=== PATIENT | female | born 1985 | race Caucasian/White ===

== ENCOUNTER 2022-10-26 04:53 | Emergency (ER) | payer BC, SELFPAY ==
[2022-10-26 05:01] VITALS: BP 152/98; PULSE 87; RESP 22; TEMP 36.1; O2SAT 97; BMI 30.5
--- OUTSIDE RECORDS SUMMARY | 2022-10-26 05:31 | XMS_ITS | Patient Health Record ---
Author Name Unknown Organization [facility] - Primary Address [address] [address] Care Team Providers Care House Wirer Helper Name Role Phone Different, PCP Primary Care Provider Nam Walters Unavailable [phone] REASON FOR REFERRAL No Information MEDICATIONS Medication SIG (Take, Route, Frequency, Duration) Notes Start Date End Date Status metFORMIN 500 mg 1 tab(s) orally once a day for 30 day(s) Not-Taking fluticasone CFC free 110 mcg/inh 2 puff(s) inhaled 2 times a day for 30 day(s) Not-Taking albuterol 90 mcg/inh 2 puff(s) inhaled 4 times a day for 30 day(s) Active SOCIAL HISTORY Sex Assigned At : Social History Observation Description Sex Assigned At Unknown PROBLEMS Problem Type ICD Code Onset Dates Problem Status W/U Status Risk SNOMED Code Notes Problem Other obesity due to excess calories (E66.09) Active confirmed Obesity due to excess calories (501868739) Problem Obstructive sleep apnea (adult) (pediatric) (G47.33) Active confirmed Obstructive sleep apnea syndrome (disorder) (24871665) Encounters Encounter Location Date Provider Diagnosis [facility] - Primary [address] [address] 11/27/2021 Nam Olivo PLAN OF TREATMENT No Information Insurance Providers Payer Name Payer Address Payer Phone Subscriber Number Group Number Insured Name Patient Relationship to Insured Coverage Start Date Coverage End Date [employer] Commercial [address] [address] [place] [address] [id number] [place]NE BURNETT Spouse - patient is the spouse of the insured MEDICAL (GENERAL) HISTORY Medical History History ICD Code sleep apnea asthma Surgical History Surgery Date(Month/Year) 4 right ankle 2019 breast reduction
--- OUTSIDE RECORDS SUMMARY | 2022-10-26 05:31 | XMS_ITS | Continuity of Care Document ---
Author Name Unknown Organization [facility] Address [address] [place] [address] Phone Care Team Providers Care Pipe Inspector Name Role Phone Dewayne Wilkins Unavailable Unavailable Allergies, Adverse Reactions, Alerts Substance Reaction Status Criticality No Known Allergies Active No Inform ation Medications Medication Instructions Dosage Effective Dates (start - stop) Status Comments BIOTIN (unknown strength) Not Available - Active APPLE CIDER VINEGAR (unknown strength) Not Available - Active VITAMIN C (unknown strength) Not Available - Active VITAMIN D3 (unknown strength) Not Available - Active METFORMIN HCL (unknown strength) Not Available - Active Procedures Procedure Date Office/Outpatient Visit,Ignacia Amador 2020 Advance Directives Directive Yes / No Effective Date File Name No Information Encounters Encounter Description Practice Location Reason(s) For Visit Diagnoses Date Provider Providers Copied on Encounter [facility], [address], [place], [place], [id number] , [place] tel: [phone] [facility] No Information Josep Raygoza [facility], [address], [place], [place], [id number] , [place]. tel: [phone] Office/Outpat ient Visit,[facility], [address], [place], [place], [id number] , [place] tel: [phone] [facility] [place] Low back painCervicalgia 1 Josep Raygoza [facility], [address], [place], [place], [id number] , [place]. tel:[phone] Referring Provider: Dewayne Car, [facility] [address], [place], [address] . tel:[phone] Family History Family Member Type Diagnosis Age At Onset No Information Payers Payer name Insurance type Covered republican ID Authorsaud aggarwal(s) [facility] [id number] [facility] [id number] Social History Type Description Quantity Date Captured Comments Sex Female Smoking Status No Information Chief Complaint And Reason For Visit No Information Reason For Referral Reason For Referral No Information History Of Present Illness Encounter Date Complaint History Of Prese nt Illness No Information Functional Status Date Functional Assessmen t No Information Instructions Date Instruction Additional Infor mation No Information Assessments Type Assessment Date No Information Patient Care Teams Name Effective Dates (start - stop) Status Members No Information
--- NOTE | 2022-10-26 05:45 | ED.ABDPAIN ---
HPI - Abdominal Pain General Date Seen: 10/26/22 Chief Complaint: Unspecified Complaint, Adult Stated Complaint: hemorrhoids Time Seen by Provider: 10/26/22 05:09 Source: patient and family Mode of arrival: ambulatory Limitations: no limitations History of Present Illness HPI narrative: Patient is a 37-year-old female presents here with rectal pain secondary to hemorrhoids, gets this every day, last approximately 1:00 p.m. and then resolves, it occurs primarily with bowel movements, she took her anxiety medication today because of how bad it was. She had a colonoscopy done recently up in [place], apparently that was normal, she just has some small hemorrhoids. She has not noted that any of them have actually worsened, but this is the similar episode that she goes through every day. He is brought in by her today to see if there is anything that can be done for this she has an appointment at 1:00 p.m. this afternoon with the colorectal specialist. Treatments prior to arrival: other Related Data Patient : No Home Medications Medication Instructions Recorded Confirmed spironolactone 100 mg tablet 100 mg PO BID 09/18/21 09/18/21 Previous Rx's Medication Instructions Recorded albuterol sulfate 2.5 mg/3 mL 2.5 mg (3 mL) inhalation Q4-6H PRN 09/18/21 (0.083 %) solution for nebulization shortness of breath or wheezing #75 mL albuterol sulfate 90 mcg/actuation 2 puff inhalation Q6H PRN 09/18/21 aerosol inhaler shortness of breath or wheezing #6.7 grams hydrocortisone acetate 25 mg 25 mg TX DAILY #12 ea 10/26/22 rectal suppository (Anusol-HC) Allergies Allergy/AdvReac Type Severity Reaction Status Date / Time No Known Drug Allergies Allergy Verified 09/18/21 12:13 Review of Systems Status of ROS Reports: 10 or more systems reviewed and unremarkable except as noted in History and below PFSH PFS Medical History Asthma ?J45.909 - Unspecified asthma, uncomplicated (ICD-10) Social History Smoking Status: Never smoker Exam Narrative: Exam Narrative: Patient is seen in room 6 with a nurse present Violet, she is rocking, obviously anxious, she does not complain of any abdominal pain just pain over the rectal area. With my nurse present, I was able to examine the area, she has 1 small external nonthrombosed hemorrhoid, but really no other inner or outer, she would not tolerate a rectal exam and I was unable to do this. Const: Vital Signs, click to edit/add: Vital Signs - 24 hr 10/26/22 05:01 Temperature 97.0 F L Pulse Rate [Left P ulse Oximeter] 87 Respiratory Rate 22 Blood Pressure [Le ft Upper Arm] 152/98 H Pulse Oximetry 97 Oxygen Delivery Me thod Room Air Documenting provider has reviewed patient's vital signs: yes Course Course Hospital Course: I discussed with her that I really do not have a lot to offer her with the 2-3 month history of hemorrhoids, she is already seeing a regular specialist for this, and the colorectal area. I do suggest that she follow up with him I did give her prescription for suppositories that often can help this, with cortisone cream. Would be happy to refer to our specialists here General surgery the could also help her too. But she feels more apt to stay within her system. Vital Signs Vital signs: Initial Vital Signs Temperature 97.0 F L 10/26/22 05:01 Temperature Source Temporal Artery Scan 10/26/22 05:01 Pulse Rate 87 10/26/22 05:01 Pulse Rhythm Regular 10/26/22 05:01 Respiratory Rate 22 10/26/22 05:01 Blood Pressure 152/98 H 10/26/22 05:01 Blood Pressure Mean 116 H 10/26/22 05:01 Blood Pressure Position Sitting 10/26/22 05:01 Pulse Oximetry 97 10/26/22 05:01 Oxygen Delivery Method Room Air 10/26/22 05:01 Vital Signs Temperature 97.0 F L 10/26/22 05:01 Pulse Rate 87 10/26/22 05:01 Respiratory Rate 22 10/26/22 05:01 Blood Pressure 152/98 H 10/26/22 05:01 Pulse Oximetry 97 10/26/22 05:01 Oxygen Delivery Method Room Air 10/26/22 05:01 Temperature 97.0 F L 10/26/22 05:01 Pulse Rate 87 10/26/22 05:01 Respiratory Rate 22 10/26/22 05:01 Blood Pressure 152/98 H 10/26/22 05:01 Pulse Oximetry 97 10/26/22 05:01 Oxygen Delivery Method Room Air 10/26/22 05:01 Discharge Plan Discharge Clinical Impression: Cutaneous tag, hemorrhoidal Patient Disposition: Home w/ Parent or Adult Condition: Stable Additional Instructions: Home rest try the Anusol HC. Follow-up with Colorectal sounds like you already have an appointment today. Prescriptions: New hydrocortisone acetate [Anusol-HC] 25 mg suppository 25 mg TX DAILY Qty: 12 0RF No Action spironolactone 100 mg tablet 100 mg PO BID albuterol sulfate 2.5 mg /3 mL (0.083 %) solution for nebulization 2.5 mg inhalation Q4-6H PRN (Reason: shortness of breath or wheezing) Qty: 75 0RF albuterol sulfate 90 mcg/actuation HFA aerosol inhaler 2 puff inhalation Q6H PRN (Reason: shortness of breath or wheezing) Qty: 6.7 2RF Follow Up/Referrals: Kristen Lopez MD [Staff Physician] - Provider,Not a Local [Primary Care Provider] - Stand Alone Forms: [email or web address] Info Instructions
--- NOTE | 2022-10-26 05:54 | ED.NURSE ---
Patient left department without discharge instructions per Dr. Saldaña's direction. Patient left ambulatory with all belongings.
== END 2022-10-26 05:57 | disposition home or self-care (01) ==
PROVIDERS: Emergency Provider Family Medicine
DX: K64.4 Residual hemorrhoidal skin tags (principal)
CPT/HCPCS: 99282; 99283